=== PATIENT | female | born 1975 | race Caucasian/White ===

== ENCOUNTER 2021-01-27 16:13 | Inpatient (IN) | payer MEDICAID ==
[~2021-01-27] VITALS: Ht 175.3 cm; Wt 71.7 kg
[2021-01-27] MEDS ORDERED: ONDANSETRON HCL 4MG/2ML INJ IV STA (16:48)
[2021-01-27] MEDS ORDERED: CEFTRIAXONE 2 G PREMIX 50 ML IV ONE (17:00)
[2021-01-27] MEDS ORDERED: PANTOPRAZOLE SODIUM 40 MG/VIAL IV ONE (17:00)
[2021-01-27] MEDS ORDERED: OCTREOTIDE 1,000 MCG in SODIUM CHLORIDE 0.9% 100 ML IV ONE (17:00)
[2021-01-27] MEDS ORDERED: SODIUM CHLORIDE 0.9% 1,000 ML IV ONE (17:00)
[2021-01-27 17:15] LABS: MEAN CORPUSCULAR HEMOGLOBIN 36.8 pg (28.0-32.0); MEAN CORPUSCULAR VOLUME 105.7 fL (80.0-94.0); RED BLOOD CELL COUNT 1.91 mill/uL (4.7-6.1); RED CELL DISTRIBUTION WIDTH 18.4 % (11.6-14.6)
[2021-01-27 17:18] LABS: HEMATOCRIT. 20.2 % (42.0-52.0)
[2021-01-27 17:20] LABS: CHLORIDE 112 mEq/L (98-107)
[2021-01-27 17:24] LABS: INR 2.1; PROTHROMBIN TIME 21.4 sec (9.6-11.0)
[2021-01-27 17:29] LABS: CREATINE KINASE 21 IU/L (39-308)
[2021-01-27 17:39] LABS: MEAN PLATELET VOLUME 9.5 fl (7.4-10.4); PLATELET 68 x1000/uL (130-400)
[2021-01-27 17:41] LABS: PLATELET ESTIMATE DECREASED
[2021-01-27] MEDS ORDERED: OCTREOTIDE 1,000 MCG in SODIUM CHLORIDE 0.9% 100 ML IV NR (18:30)
[2021-01-27] MEDS ORDERED: AZITHROMYCIN 500MG/250ML 250 ML IV SCH (19:45)
[2021-01-27 23:08] LABS: CLARITY URINE CLEAR (CLEAR); COLOR URINE DARK YELLOW (YELLOW); KETONES URINE NEGATIVE (NEGATIVE); LEUKOCYTE ESTERASE URINE 1+ (NEGATIVE); NITRITE URINE POSITIVE (NEGATIVE); OCCULT BLOOD URINE 2+ (NEGATIVE); PROTEIN URINE TRACE (NEGATIVE); SPECIFIC GRAVITY URINE 1.019 (1.005-1.030); UROBILINOGEN URINE 0.2 E.U./dL (0.2-1.0)
[2021-01-27 23:24] LABS: *AMPHETAMINES SCREEN URINE NEGATIVE (NEGATIVE); *BARBITURATES SCREEN URINE NEGATIVE (NEGATIVE); *BENZODIAZEPINES SCREEN URINE NEGATIVE (NEGATIVE); *COCAINE SCREEN URINE NEGATIVE (NEGATIVE)
[2021-01-27 23:25] LABS: CANNABINOID URINE SCREEN NEGATIVE (NEGATIVE); METHADONE URINE SCREEN NEGATIVE (NEGATIVE); OPIATES URINE SCREEN NEGATIVE (NEGATIVE); PHENCYCLIDINE URINE SCREEN NEGATIVE (NEGATIVE)
[2021-01-28] VITALS (9 sets, daily range): BP systolic 86–103; BP diastolic 54–71
[2021-01-28] MEDS: DEXT 5%/0.45% NACL 1000ML 1,000 ML IV SCH ×2 (11:57→22:50)
[2021-01-28] MEDS: MULTIVITAMINS,THER W-MINERALS TABLET PO SCH (14:07)
[2021-01-28] MEDS: FOLIC ACID 1MG TABLET PO SCH (14:07)
[2021-01-28] MEDS: THIAMINE HCL 100MG TABLET PO SCH (14:07)
[2021-01-28] MEDS ORDERED: CEFTRIAXONE 1 G PREMIX 50 ML IV SCH (18:00)
[2021-01-28] MEDS: CEFTRIAXONE 1,000 MG in DEXTROSE 5% WATER 50 ML IV SCH (18:03)
[2021-01-28 18:04] LABS: PHOSPHORUS 3.2 mg/dL (2.5-4.9)
[2021-01-28 18:21] LABS: FERRITIN 977 ng/mL (10-291)
[2021-01-28 18:32] LABS: HEPATITIS B SURFACE ANTIGEN NEGATIVE
[2021-01-28 19:21] LABS: VITAMIN B12 SERUM > 2000.0 pg/mL (211-911)
[2021-01-29] VITALS (15 sets, daily range): BP systolic 97–112; BP diastolic 63–79
[2021-01-29] MEDS: AZITHROMYCIN 500 MG in DEXT 5% WATER 250 ML IV SCH ×2 (06:38→20:00)
[2021-01-29] MEDS: ONDANSETRON HCL 4MG/2ML INJ IV PRN (06:54)
[2021-01-29] MEDS: THIAMINE HCL 100MG TABLET PO SCH (09:00)
[2021-01-29] MEDS: FOLIC ACID 1MG TABLET PO SCH (09:00)
[2021-01-29] MEDS: MULTIVITAMINS,THER W-MINERALS TABLET PO SCH (09:00)
[2021-01-29 11:07] LABS: HEMATOCRIT. 22.8 % (36.0-48.0); HEMOGLOBIN. 7.9 g/dL (12.0-16.0); MEAN CORPUSCULAR HEMOGLOBIN 35.7 pg (28.0-32.0); MEAN CORPUSCULAR VOLUME 103.5 fL (81.0-99.0); RED BLOOD CELL COUNT 2.21 mill/uL (4.2-5.4); RED CELL DISTRIBUTION WIDTH 19.9 % (11.6-14.6)
[2021-01-29 11:13] LABS: INR 1.9; PROTHROMBIN TIME 19.8 sec (9.6-11.0)
[2021-01-29] MEDS: DEXT 5%/0.45% NACL 1000ML 1,000 ML IV SCH (12:47)
[2021-01-29] MEDS ORDERED: LIDOCAINE HCL 1% 30ML VIAL (10MG/ML) ONE (13:09)
[2021-01-29] MEDS ORDERED: SODIUM BICARBONATE 4% (2.4MEQ) 5ML VIAL IV ONE (13:10)
[2021-01-29 13:22] LABS: PLATELET 58 x1000/uL (130-400)
[2021-01-29 13:25] LABS: PLATELET ESTIMATE DECREASED
[2021-01-29] MEDS ORDERED: PHYTONADIONE 10MG/ML AMP SUBCUT NR (14:00)
[2021-01-29] MEDS: CEFTRIAXONE 1,000 MG in DEXTROSE 5% WATER 50 ML IV SCH (17:07)
[2021-01-30] VITALS: BP 107/73
[2021-01-30] MEDS: DEXT 5%/0.45% NACL 1000ML 1,000 ML IV SCH ×2 (01:45→15:14)
[2021-01-30 04:00] VITALS: BP 94/53
[2021-01-30 07:02] LABS: BASOPHILS % 0.1 % (0.0-2.0); EOSINOPHILS % 0.5 % (0.0-5.0); HEMATOCRIT. 21.4 % (36.0-48.0); HEMOGLOBIN. 7.4 g/dL (12.0-16.0); LYMPHOCYTES % 8.5 % (20.0-50.0); MEAN CORPUSCULAR HEMOGLOBIN 35.4 pg (28.0-32.0); MEAN CORPUSCULAR VOLUME 102.3 fL (81.0-99.0); MONOCYTES % 8.8 % (2.0-8.0); NEUTROPHILS % 82.1 % (40.0-76.0); RED BLOOD CELL COUNT 2.09 mill/uL (4.2-5.4); RED CELL DISTRIBUTION WIDTH 19.8 % (11.6-14.6)
[2021-01-30 07:27] LABS: CHLORIDE 113 mEq/L (98-107)
[2021-01-30 08:00] VITALS: BP 93/52
[2021-01-30] MEDS: PHYTONADIONE 10MG/ML AMP SUBCUT SCH (08:48)
[2021-01-30] MEDS: FOLIC ACID 1MG TABLET PO SCH (08:48)
[2021-01-30] MEDS: THIAMINE HCL 100MG TABLET PO SCH (08:48)
[2021-01-30] MEDS: MULTIVITAMINS,THER W-MINERALS TABLET PO SCH (08:48)
[2021-01-30] MEDS: MAGNESIUM OXIDE 400MG TABLET PO SCH (11:37)
[2021-01-30 12:00] VITALS: BP 90/58
[2021-01-30 12:25] LABS: MEAN PLATELET VOLUME 9.5 fl (7.4-10.4); PLATELET 52 x1000/uL (130-400)
[2021-01-30 16:00] VITALS: BP 111/59
[2021-01-30] MEDS: CEFTRIAXONE 1,000 MG in DEXTROSE 5% WATER 50 ML IV SCH (17:11)
[2021-01-30] MEDS: AZITHROMYCIN 500 MG in DEXT 5% WATER 250 ML IV SCH (19:34)
[2021-01-30 20:00] VITALS: BP 103/62
[2021-01-31 00:50] VITALS: BP 101/71
[2021-01-31] MEDS: DEXT 5%/0.45% NACL 1000ML 1,000 ML IV SCH ×2 (03:38→17:10)
[2021-01-31 04:00] VITALS: BP 97/65
[2021-01-31 07:21] LABS: HEMOGLOBIN. 7.7 g/dL (12.0-16.0); MEAN CORPUSCULAR HEMOGLOBIN 36.3 pg (28.0-32.0); MEAN CORPUSCULAR VOLUME 103.6 fL (81.0-99.0); PLATELET 54 x1000/uL (130-400); RED BLOOD CELL COUNT 2.13 mill/uL (4.2-5.4)
[2021-01-31 07:46] LABS: CHLORIDE 111 mEq/L (98-107)
[2021-01-31 08:00] VITALS: BP 94/53
[2021-01-31] MEDS: MAGNESIUM OXIDE 400MG TABLET PO SCH (08:42)
[2021-01-31] MEDS: PHYTONADIONE 10MG/ML AMP SUBCUT SCH (08:42)
[2021-01-31] MEDS: FOLIC ACID 1MG TABLET PO SCH (08:42)
[2021-01-31] MEDS: MULTIVITAMINS,THER W-MINERALS TABLET PO SCH (08:42)
[2021-01-31] MEDS: THIAMINE HCL 100MG TABLET PO SCH (08:42)
[2021-01-31 11:53] LABS: PLATELET ESTIMATE DECREASED
[2021-01-31 12:00] VITALS: BP 109/71
[2021-01-31 16:00] VITALS: BP 88/52
[2021-01-31] MEDS: CEFTRIAXONE 1,000 MG in DEXTROSE 5% WATER 50 ML IV SCH (17:08)
[2021-01-31 20:00] VITALS: BP 95/62
[2021-01-31] MEDS: AZITHROMYCIN 500 MG in DEXT 5% WATER 250 ML IV SCH (20:11)
[2021-02-01] VITALS (12 sets, daily range): BP systolic 91–108; BP diastolic 50–76
[2021-02-01 06:20] LABS: BASOPHILS % 0.2 % (0.0-2.0); EOSINOPHILS % 0.4 % (0.0-5.0); LYMPHOCYTES % 10.1 % (20.0-50.0); MEAN CORPUSCULAR VOLUME 104.7 fL (81.0-99.0); MEAN PLATELET VOLUME 9.8 fl (7.4-10.4); MONOCYTES % 10.2 % (2.0-8.0); NEUTROPHILS % 79.1 % (40.0-76.0); RED BLOOD CELL COUNT 1.95 mill/uL (4.2-5.4); RED CELL DISTRIBUTION WIDTH 20.5 % (11.6-14.6)
[2021-02-01 07:06] LABS: CHLORIDE 109 mEq/L (98-107)
[2021-02-01 07:30] LABS: HEMATOCRIT. 20.4 % (36.0-48.0); PLATELET 49 x1000/uL (130-400)
[2021-02-01] MEDS: MULTIVITAMINS,THER W-MINERALS TABLET PO SCH (09:06)
[2021-02-01] MEDS: THIAMINE HCL 100MG TABLET PO SCH (09:06)
[2021-02-01] MEDS: FOLIC ACID 1MG TABLET PO SCH (09:06)
[2021-02-01] MEDS: DEXT 5%/0.45% NACL 1000ML 1,000 ML IV SCH ×2 (09:06→20:26)
[2021-02-01] MEDS: MAGNESIUM OXIDE 400MG TABLET PO SCH (09:07)
[2021-02-01] MEDS: PANTOPRAZOLE SODIUM 40 MG/VIAL IV SCH ×2 (09:12→16:27)
[2021-02-01 16:46] LABS: PLATELET ESTIMATE MARKEDLY DECREASED
[2021-02-01] MEDS: CEFTRIAXONE 1,000 MG in DEXTROSE 5% WATER 50 ML IV SCH (18:14)
[2021-02-01 18:24] LABS: HEMATOCRIT 23.7 % (36.0-48.0); HEMOGLOBIN 8.4 g/dL (12.0-16.0)
[2021-02-01 18:34] LABS: INR 1.8; PROTHROMBIN TIME 18.7 sec (9.6-11.0)
[2021-02-01] MEDS: AZITHROMYCIN 500 MG in DEXT 5% WATER 250 ML IV SCH (20:25)
[2021-02-01] MEDS ORDERED: MAGNESIUM 2 G PREMIX 50 ML IV NR (23:00)
[2021-02-02] VITALS (17 sets, daily range): BP systolic 91–108; BP diastolic 53–73
[2021-02-02 06:08] LABS: INR 1.9; PROTHROMBIN TIME 19.5 sec (9.6-11.0)
[2021-02-02 06:24] LABS: CHLORIDE 109 mEq/L (98-107)
[2021-02-02 07:05] LABS: BASOPHILS % 0.3 % (0.0-2.0); EOSINOPHILS % 0.8 % (0.0-5.0); HEMOGLOBIN. 7.2 g/dL (12.0-16.0); LYMPHOCYTES % 14.1 % (20.0-50.0); MEAN CORPUSCULAR HEMOGLOBIN 35.7 pg (28.0-32.0); MEAN CORPUSCULAR VOLUME 101.3 fL (81.0-99.0); MEAN PLATELET VOLUME 9.9 fl (7.4-10.4); MONOCYTES % 8.7 % (2.0-8.0); NEUTROPHILS % 76.1 % (40.0-76.0); RED BLOOD CELL COUNT 2.02 mill/uL (4.2-5.4); RED CELL DISTRIBUTION WIDTH 20.6 % (11.6-14.6)
[2021-02-02] MEDS: MAGNESIUM OXIDE 400MG TABLET PO SCH (08:35)
[2021-02-02] MEDS: THIAMINE HCL 100MG TABLET PO SCH (08:35)
[2021-02-02] MEDS: FOLIC ACID 1MG TABLET PO SCH (08:36)
[2021-02-02] MEDS: PANTOPRAZOLE SODIUM 40 MG/VIAL IV SCH ×2 (08:36→19:06)
[2021-02-02] MEDS: MULTIVITAMINS,THER W-MINERALS TABLET PO SCH (08:36)
[2021-02-02 09:04] LABS: HEMATOCRIT. 20.4 % (36.0-48.0)
[2021-02-02] MEDS ORDERED: SIMETHICONE 40 MG/0.6 ML 30ML ONE (14:51)
[2021-02-02] MEDS ORDERED: PROPOFOL 200MG/20ML VIAL IV ONE (16:17)
[2021-02-02] MEDS ORDERED: MIDAZOLAM HCL 2 MG/2 ML VIAL ONE (16:17)
[2021-02-02] MEDS: CEFTRIAXONE 1,000 MG in DEXTROSE 5% WATER 50 ML IV SCH (19:06)
[2021-02-02] MEDS: OCTREOTIDE 1,000 MCG in SODIUM CHLORIDE 0.9% 100 ML IV SCH (19:45)
[2021-02-02] MEDS: DEXT 5%/0.45% NACL 1000ML 1,000 ML IV SCH (19:54)
[2021-02-02] MEDS ORDERED: AZITHROMYCIN 500 MG TABLET PO SCH (20:00)
[2021-02-02 21:11] LABS: HEMATOCRIT 23.5 % (36.0-48.0); HEMOGLOBIN 8.4 g/dL (12.0-16.0); MEAN CORPUSCULAR HEMOGLOBIN 35.2 pg (28.0-32.0); MEAN CORPUSCULAR VOLUME 98.9 fL (81.0-99.0); RED BLOOD CELL COUNT 2.38 mill/uL (4.2-5.4); RED CELL DISTRIBUTION WIDTH 21.9 % (11.6-14.6)
[2021-02-02 21:19] LABS: PLATELET 42 x1000/uL (130-400)
[2021-02-03] VITALS: BP 93/61
[2021-02-03 04:00] VITALS: BP 95/64
[2021-02-03 06:20] LABS: BASOPHILS % 0.2 % (0.0-2.0); EOSINOPHILS % 0.3 % (0.0-5.0); HEMATOCRIT. 23.1 % (36.0-48.0); HEMOGLOBIN. 8.2 g/dL (12.0-16.0); LYMPHOCYTES % 9.2 % (20.0-50.0); MEAN CORPUSCULAR HEMOGLOBIN 35.3 pg (28.0-32.0); MEAN CORPUSCULAR VOLUME 99.4 fL (81.0-99.0); MEAN PLATELET VOLUME 9.9 fl (7.4-10.4); MONOCYTES % 9.4 % (2.0-8.0); NEUTROPHILS % 80.9 % (40.0-76.0); RED BLOOD CELL COUNT 2.33 mill/uL (4.2-5.4); RED CELL DISTRIBUTION WIDTH 22.4 % (11.6-14.6)
[2021-02-03 06:30] LABS: PHOSPHORUS 2.7 mg/dL (2.5-4.9)
[2021-02-03 06:51] LABS: PLATELET 41 x1000/uL (130-400)
[2021-02-03 08:00] VITALS: BP 118/80
[2021-02-03 08:42] LABS: PLATELET 47 x1000/uL (130-400)
[2021-02-03] MEDS: MAGNESIUM OXIDE 400MG TABLET PO SCH (08:42)
[2021-02-03] MEDS: MULTIVITAMINS,THER W-MINERALS TABLET PO SCH (08:42)
[2021-02-03] MEDS: THIAMINE HCL 100MG TABLET PO SCH (08:42)
[2021-02-03] MEDS: PANTOPRAZOLE SODIUM 40 MG/VIAL IV SCH ×2 (08:42→16:49)
[2021-02-03] MEDS: FOLIC ACID 1MG TABLET PO SCH (08:42)
[2021-02-03] MEDS: DEXT 5%/0.45% NACL 1000ML 1,000 ML IV SCH ×2 (08:43→08:44)
[2021-02-03] MEDS ORDERED: CITALOPRAM HYDROBROMIDE 10MG TABLET PO NR (10:10)
[2021-02-03 12:00] VITALS: BP 104/79
[2021-02-03] MEDS: GABAPENTIN 100MG CAPSULE PO SCH ×2 (14:39→21:20)
[2021-02-03 16:00] VITALS: BP 130/76
[2021-02-03] MEDS: OCTREOTIDE 1,000 MCG in SODIUM CHLORIDE 0.9% 100 ML IV SCH (16:49)
[2021-02-03 20:00] VITALS: BP 101/66
[2021-02-04] VITALS: BP 106/66
[2021-02-04] MEDS ORDERED: MORPHINE SULFATE 2 MG/ML CPJ (NOT FOR IM USE) IV PRN
[2021-02-04] MEDS ORDERED: HYDROMORPHONE HCL/PF 2MG/ML CPJ IV PRN ×2 (00:15→03:30)
[2021-02-04] MEDS ORDERED: DIPHENHYDRAMINE 50MG CAPSULE PO PRN (00:30)
[2021-02-04] MEDS: TRAMADOL 50MG TABLET PO PRN ×2 (00:36→08:43)
[2021-02-04] MEDS: DEXT 5%/0.45% NACL 1000ML 1,000 ML IV SCH ×2 (01:10→14:58)
[2021-02-04 04:00] VITALS: BP 107/71
[2021-02-04] MEDS: OCTREOTIDE 1,000 MCG in SODIUM CHLORIDE 0.9% 100 ML IV SCH (05:09)
[2021-02-04 06:14] LABS: BASOPHILS % 0.5 % (0.0-2.0); EOSINOPHILS % 0.9 % (0.0-5.0); HEMATOCRIT. 24.5 % (36.0-48.0); HEMOGLOBIN. 8.6 g/dL (12.0-16.0); MEAN CORPUSCULAR HEMOGLOBIN 34.8 pg (28.0-32.0); MEAN CORPUSCULAR VOLUME 98.9 fL (81.0-99.0); MONOCYTES % 9.6 % (2.0-8.0); RED BLOOD CELL COUNT 2.48 mill/uL (4.2-5.4); RED CELL DISTRIBUTION WIDTH 22.4 % (11.6-14.6)
[2021-02-04 06:22] LABS: CHLORIDE 108 mEq/L (98-107)
[2021-02-04] MEDS: GABAPENTIN 100MG CAPSULE PO SCH ×3 (06:38→21:12)
[2021-02-04 08:00] VITALS: BP 113/77
[2021-02-04] MEDS: THIAMINE HCL 100MG TABLET PO SCH (08:32)
[2021-02-04] MEDS: PANTOPRAZOLE SODIUM 40 MG/VIAL IV SCH ×2 (08:32→16:58)
[2021-02-04] MEDS: MULTIVITAMINS,THER W-MINERALS TABLET PO SCH (08:32)
[2021-02-04] MEDS: FOLIC ACID 1MG TABLET PO SCH (08:32)
[2021-02-04] MEDS: MAGNESIUM OXIDE 400MG TABLET PO SCH (08:33)
[2021-02-04] MEDS: ONDANSETRON HCL 4MG/2ML INJ IV PRN (08:43)
[2021-02-04 12:00] VITALS: BP 124/87
[2021-02-04 13:51] LABS: MEAN PLATELET VOLUME 9.7 fl (7.4-10.4); PLATELET 49 x1000/uL (130-400)
[2021-02-04 16:00] VITALS: BP 120/82
[2021-02-04 20:00] VITALS: BP 116/68
[2021-02-05] VITALS (9 sets, daily range): BP systolic 100–132; BP diastolic 60–78
[2021-02-05] MEDS: OCTREOTIDE 1,000 MCG in SODIUM CHLORIDE 0.9% 100 ML IV SCH ×2 (01:30→20:36)
[2021-02-05] MEDS: DEXT 5%/0.45% NACL 1000ML 1,000 ML IV SCH ×2 (01:31→17:30)
[2021-02-05] MEDS: GABAPENTIN 100MG CAPSULE PO SCH ×3 (05:02→20:50)
[2021-02-05] MEDS: PANTOPRAZOLE SODIUM 40 MG/VIAL IV SCH ×2 (10:11→17:30)
[2021-02-05] MEDS: MULTIVITAMINS,THER W-MINERALS TABLET PO SCH (10:11)
[2021-02-05] MEDS: THIAMINE HCL 100MG TABLET PO SCH (10:11)
[2021-02-05] MEDS: FOLIC ACID 1MG TABLET PO SCH (10:11)
[2021-02-05] MEDS ORDERED: TEMAZEPAM 15MG CAPSULE PO PRN (10:45)
[2021-02-05 11:06] LABS: INR 1.9; PROTHROMBIN TIME 19.5 sec (9.6-11.0)
[2021-02-05] MEDS: CITALOPRAM HYDROBROMIDE 10MG TABLET PO SCH (11:08)
[2021-02-05] MEDS: MAGNESIUM OXIDE 400MG TABLET PO SCH (11:08)
[2021-02-05 11:10] LABS: BASOPHILS % 0.5 % (0.0-2.0); HEMATOCRIT. 25.1 % (36.0-48.0); HEMOGLOBIN. 8.5 g/dL (12.0-16.0); LYMPHOCYTES % 7.6 % (20.0-50.0); MEAN CORPUSCULAR HEMOGLOBIN 34.2 pg (28.0-32.0); MEAN CORPUSCULAR VOLUME 101.1 fL (81.0-99.0); MEAN PLATELET VOLUME 9.4 fl (7.4-10.4); MONOCYTES % 9.7 % (2.0-8.0); NEUTROPHILS % 81.2 % (40.0-76.0); RED BLOOD CELL COUNT 2.48 mill/uL (4.2-5.4); RED CELL DISTRIBUTION WIDTH 23.1 % (11.6-14.6)
[2021-02-05 11:19] LABS: PLATELET 47 x1000/uL (130-400)
[2021-02-06] VITALS (12 sets, daily range): BP systolic 94–132; BP diastolic 60–78
[2021-02-06] MEDS: GABAPENTIN 100MG CAPSULE PO SCH ×3 (05:11→21:15)
[2021-02-06] MEDS: DEXT 5%/0.45% NACL 1000ML 1,000 ML IV SCH ×2 (05:11→21:15)
[2021-02-06 07:10] LABS: INR 1.9; PROTHROMBIN TIME 19.2 sec (9.6-11.0)
[2021-02-06 07:29] LABS: CHLORIDE 107 mEq/L (98-107)
[2021-02-06 07:36] LABS: BASOPHILS % 0.5 % (0.0-2.0); HEMATOCRIT. 23.2 % (36.0-48.0); HEMOGLOBIN. 8.1 g/dL (12.0-16.0); LYMPHOCYTES % 11.6 % (20.0-50.0); MEAN CORPUSCULAR HEMOGLOBIN 35.2 pg (28.0-32.0); MEAN CORPUSCULAR VOLUME 100.3 fL (81.0-99.0); NEUTROPHILS % 75.9 % (40.0-76.0); RED BLOOD CELL COUNT 2.31 mill/uL (4.2-5.4)
[2021-02-06 08:13] LABS: MEAN PLATELET VOLUME 9.6 fl (7.4-10.4); PLATELET 46 x1000/uL (130-400)
[2021-02-06] MEDS: MAGNESIUM OXIDE 400MG TABLET PO SCH (09:11)
[2021-02-06] MEDS: MULTIVITAMINS,THER W-MINERALS TABLET PO SCH (09:11)
[2021-02-06] MEDS: FOLIC ACID 1MG TABLET PO SCH (09:11)
[2021-02-06] MEDS: THIAMINE HCL 100MG TABLET PO SCH (09:11)
[2021-02-06] MEDS: PANTOPRAZOLE SODIUM 40 MG/VIAL IV SCH ×2 (09:12→17:16)
[2021-02-06] MEDS: CITALOPRAM HYDROBROMIDE 10MG TABLET PO SCH (09:12)
[2021-02-06 12:33] LABS: INR 1.8; PROTHROMBIN TIME 18.2 sec (9.6-11.0)
[2021-02-06 12:52] LABS: HEMATOCRIT 24.3 % (36.0-48.0); HEMOGLOBIN 8.6 g/dL (12.0-16.0)
[2021-02-06] MEDS: TRAMADOL 50MG TABLET PO PRN (13:42)
[2021-02-06] MEDS: OCTREOTIDE 1,000 MCG in SODIUM CHLORIDE 0.9% 100 ML IV SCH (17:27)
[2021-02-07] VITALS: BP 112/77
[2021-02-07 04:00] VITALS: BP 100/58
[2021-02-07] MEDS: GABAPENTIN 100MG CAPSULE PO SCH ×3 (05:09→22:20)
[2021-02-07 07:39] LABS: BASOPHILS % 0.6 % (0.0-2.0); EOSINOPHILS % 0.9 % (0.0-5.0); HEMATOCRIT. 22.1 % (36.0-48.0); HEMOGLOBIN. 7.7 g/dL (12.0-16.0); LYMPHOCYTES % 11.4 % (20.0-50.0); MEAN CORPUSCULAR HEMOGLOBIN 34.7 pg (28.0-32.0); MEAN CORPUSCULAR VOLUME 100.3 fL (81.0-99.0); MONOCYTES % 10.6 % (2.0-8.0); NEUTROPHILS % 76.5 % (40.0-76.0); RED CELL DISTRIBUTION WIDTH 22.9 % (11.6-14.6)
[2021-02-07 07:51] LABS: CHLORIDE 107 mEq/L (98-107)
[2021-02-07 07:56] LABS: PROTHROMBIN TIME 19.9 sec (9.6-11.0)
[2021-02-07 08:00] VITALS: BP 121/78
[2021-02-07] MEDS: DEXT 5%/0.45% NACL 1000ML 1,000 ML IV SCH ×2 (09:41→20:52)
[2021-02-07] MEDS: CITALOPRAM HYDROBROMIDE 10MG TABLET PO SCH (09:41)
[2021-02-07] MEDS: THIAMINE HCL 100MG TABLET PO SCH (09:41)
[2021-02-07] MEDS: MAGNESIUM OXIDE 400MG TABLET PO SCH (09:41)
[2021-02-07] MEDS: PANTOPRAZOLE SODIUM 40 MG/VIAL IV SCH ×2 (09:41→17:25)
[2021-02-07] MEDS: FOLIC ACID 1MG TABLET PO SCH (09:42)
[2021-02-07] MEDS: MULTIVITAMINS,THER W-MINERALS TABLET PO SCH (09:42)
[2021-02-07 11:02] LABS: PLATELET ESTIMATE MARKEDLY DECREASED
[2021-02-07 11:05] LABS: MEAN PLATELET VOLUME 9.5 fl (7.4-10.4); PLATELET 50 x1000/uL (130-400)
[2021-02-07 12:00] VITALS: BP 107/71
[2021-02-07] MEDS: ONDANSETRON HCL 4MG/2ML INJ IV PRN (13:54)
[2021-02-07] MEDS: OCTREOTIDE 1,000 MCG in SODIUM CHLORIDE 0.9% 100 ML IV SCH (13:54)
[2021-02-07 16:00] VITALS: BP 108/75
[2021-02-07 20:00] VITALS: BP 122/74
[2021-02-08] VITALS: BP 99/66
[2021-02-08 04:00] VITALS: BP 112/67
[2021-02-08 06:27] LABS: BASOPHILS % 0.5 % (0.0-2.0); EOSINOPHILS % 1.2 % (0.0-5.0); HEMATOCRIT. 21.7 % (36.0-48.0); HEMOGLOBIN. 7.5 g/dL (12.0-16.0); MEAN CORPUSCULAR HEMOGLOBIN 34.8 pg (28.0-32.0); MEAN CORPUSCULAR VOLUME 101.1 fL (81.0-99.0); NEUTROPHILS % 77.3 % (40.0-76.0); RED BLOOD CELL COUNT 2.15 mill/uL (4.2-5.4); RED CELL DISTRIBUTION WIDTH 22.9 % (11.6-14.6)
[2021-02-08 06:33] LABS: PROTHROMBIN TIME 20.7 sec (9.6-11.0)
[2021-02-08] MEDS: GABAPENTIN 100MG CAPSULE PO SCH ×3 (06:53→21:19)
[2021-02-08 07:17] LABS: CHLORIDE 107 mEq/L (98-107)
[2021-02-08 07:28] LABS: MEAN PLATELET VOLUME 9.7 fl (7.4-10.4); PLATELET 45 x1000/uL (130-400)
[2021-02-08 08:00] VITALS: BP 97/63
[2021-02-08] MEDS: PANTOPRAZOLE SODIUM 40 MG/VIAL IV SCH ×2 (09:28→16:52)
[2021-02-08] MEDS: CITALOPRAM HYDROBROMIDE 10MG TABLET PO SCH (09:28)
[2021-02-08] MEDS: THIAMINE HCL 100MG TABLET PO SCH (09:29)
[2021-02-08] MEDS: FOLIC ACID 1MG TABLET PO SCH (09:29)
[2021-02-08] MEDS: MULTIVITAMINS,THER W-MINERALS TABLET PO SCH (09:29)
[2021-02-08] MEDS: MAGNESIUM OXIDE 400MG TABLET PO SCH (09:29)
[2021-02-08] MEDS: OCTREOTIDE 1,000 MCG in SODIUM CHLORIDE 0.9% 100 ML IV SCH (10:46)
[2021-02-08] MEDS: DEXT 5%/0.45% NACL 1000ML 1,000 ML IV SCH (10:47)
[2021-02-08 12:00] VITALS: BP 102/70
[2021-02-08 16:00] VITALS: BP 120/79
[2021-02-08 20:00] VITALS: BP 123/81
[2021-02-09] VITALS (9 sets, daily range): BP systolic 92–125; BP diastolic 58–83
[2021-02-09] MEDS: DEXT 5%/0.45% NACL 1000ML 1,000 ML IV SCH (04:28)
[2021-02-09] MEDS: GABAPENTIN 100MG CAPSULE PO SCH ×3 (06:25→21:51)
[2021-02-09] MEDS: THIAMINE HCL 100MG TABLET PO SCH (08:01)
[2021-02-09] MEDS: CITALOPRAM HYDROBROMIDE 10MG TABLET PO SCH (08:01)
[2021-02-09] MEDS: FOLIC ACID 1MG TABLET PO SCH (08:01)
[2021-02-09] MEDS: PANTOPRAZOLE SODIUM 40 MG/VIAL IV SCH ×2 (08:01→17:14)
[2021-02-09] MEDS: MAGNESIUM OXIDE 400MG TABLET PO SCH (08:01)
[2021-02-09] MEDS: MULTIVITAMINS,THER W-MINERALS TABLET PO SCH (08:01)
[2021-02-09] MEDS: OCTREOTIDE 1,000 MCG in SODIUM CHLORIDE 0.9% 100 ML IV SCH (08:02)
[2021-02-09 09:39] LABS: INR 2.1; PROTHROMBIN TIME 21.4 sec (9.6-11.0)
[2021-02-09 09:46] LABS: HEMATOCRIT. 24.8 % (36.0-48.0); HEMOGLOBIN. 8.7 g/dL (12.0-16.0); MEAN CORPUSCULAR VOLUME 103.2 fL (81.0-99.0); RED CELL DISTRIBUTION WIDTH 22.5 % (11.6-14.6)
[2021-02-09 10:02] LABS: CHLORIDE 107 mEq/L (98-107)
[2021-02-09 11:38] LABS: PLATELET 52 x1000/uL (130-400)
[2021-02-09 11:42] LABS: PLATELET ESTIMATE MARKEDLY DECREASED
[2021-02-10] VITALS: BP 117/74
[2021-02-10 00:05] VITALS: BP 117/74
[2021-02-10 04:00] VITALS: BP 120/67
[2021-02-10] MEDS: GABAPENTIN 100MG CAPSULE PO SCH ×3 (06:15→22:21)
[2021-02-10] MEDS: MULTIVITAMINS,THER W-MINERALS TABLET PO SCH (08:38)
[2021-02-10] MEDS: MAGNESIUM OXIDE 400MG TABLET PO SCH (08:38)
[2021-02-10] MEDS: FOLIC ACID 1MG TABLET PO SCH (08:39)
[2021-02-10] MEDS: PANTOPRAZOLE SODIUM 40 MG/VIAL IV SCH ×2 (08:39→18:17)
[2021-02-10] MEDS: CITALOPRAM HYDROBROMIDE 10MG TABLET PO SCH (08:39)
[2021-02-10] MEDS: THIAMINE HCL 100MG TABLET PO SCH (08:40)
[2021-02-10 09:59] LABS: BASOPHILS % 0.8 % (0.0-2.0); EOSINOPHILS % 0.7 % (0.0-5.0); HEMATOCRIT. 21.6 % (36.0-48.0); HEMOGLOBIN. 7.4 g/dL (12.0-16.0); LYMPHOCYTES % 9.6 % (20.0-50.0); MEAN CORPUSCULAR VOLUME 102.6 fL (81.0-99.0); MEAN PLATELET VOLUME 9.4 fl (7.4-10.4); MONOCYTES % 9.8 % (2.0-8.0); NEUTROPHILS % 79.1 % (40.0-76.0); RED CELL DISTRIBUTION WIDTH 23.3 % (11.6-14.6)
[2021-02-10 10:02] LABS: PROTHROMBIN TIME 20.4 sec (9.6-11.0)
[2021-02-10 10:04] LABS: PLATELET 46 x1000/uL (130-400)
[2021-02-10 10:09] LABS: CHLORIDE 107 mEq/L (98-107)
[2021-02-10] MEDS ORDERED: LIDOCAINE HCL 1% 30ML VIAL (10MG/ML) ONE (10:45)
[2021-02-10] MEDS ORDERED: SODIUM BICARBONATE 4% (2.4MEQ) 5ML VIAL IV ONE (10:46)
[2021-02-10 16:00] VITALS: BP 93/60
[2021-02-10 20:00] VITALS: BP 104/64
[2021-02-10] MEDS: OCTREOTIDE 1,000 MCG in SODIUM CHLORIDE 0.9% 100 ML IV SCH (22:22)
[2021-02-11] VITALS: BP 114/77
[2021-02-11 04:00] VITALS: BP 106/70
[2021-02-11] MEDS: GABAPENTIN 100MG CAPSULE PO SCH ×3 (06:05→21:44)
[2021-02-11 07:13] LABS: CHLORIDE 107 mEq/L (98-107)
[2021-02-11 07:16] LABS: BASOPHILS % 0.7 % (0.0-2.0); EOSINOPHILS % 0.7 % (0.0-5.0); HEMATOCRIT. 22.4 % (36.0-48.0); HEMOGLOBIN. 7.9 g/dL (12.0-16.0); LYMPHOCYTES % 12.7 % (20.0-50.0); MEAN CORPUSCULAR HEMOGLOBIN 35.4 pg (28.0-32.0); MEAN CORPUSCULAR VOLUME 101.3 fL (81.0-99.0); MEAN PLATELET VOLUME 10.6 fl (7.4-10.4); NEUTROPHILS % 77.9 % (40.0-76.0); RED BLOOD CELL COUNT 2.22 mill/uL (4.2-5.4); RED CELL DISTRIBUTION WIDTH 23.3 % (11.6-14.6)
[2021-02-11 08:00] VITALS: BP 102/68
[2021-02-11] MEDS: PANTOPRAZOLE SODIUM 40 MG/VIAL IV SCH ×2 (08:43→17:45)
[2021-02-11] MEDS: MULTIVITAMINS,THER W-MINERALS TABLET PO SCH (08:43)
[2021-02-11] MEDS: MAGNESIUM OXIDE 400MG TABLET PO SCH (08:43)
[2021-02-11] MEDS: THIAMINE HCL 100MG TABLET PO SCH (08:44)
[2021-02-11] MEDS: FOLIC ACID 1MG TABLET PO SCH (08:44)
[2021-02-11 08:47] LABS: PLATELET 50 x1000/uL (130-400)
[2021-02-11] MEDS: CITALOPRAM HYDROBROMIDE 10MG TABLET PO SCH (08:48)
[2021-02-11 12:00] VITALS: BP 105/67
[2021-02-11 16:00] VITALS: BP 105/72
[2021-02-11 20:00] VITALS: BP 113/72
[2021-02-11] MEDS ORDERED: MAGNESIUM 4 G PREMIX 100 ML IV NR (20:00)
[2021-02-12] VITALS (10 sets, daily range): BP systolic 93–110; BP diastolic 58–74
[2021-02-12] MEDS: GABAPENTIN 100MG CAPSULE PO SCH (05:54)
[2021-02-12 08:25] LABS: BASOPHILS % 0.6 % (0.0-2.0); EOSINOPHILS % 0.1 % (0.0-5.0); HEMATOCRIT. 21.1 % (36.0-48.0); HEMOGLOBIN. 7.3 g/dL (12.0-16.0); LYMPHOCYTES % 13.1 % (20.0-50.0); MEAN CORPUSCULAR HEMOGLOBIN 34.9 pg (28.0-32.0); MEAN CORPUSCULAR VOLUME 101.4 fL (81.0-99.0); MEAN PLATELET VOLUME 9.5 fl (7.4-10.4); NEUTROPHILS % 78.2 % (40.0-76.0); RED BLOOD CELL COUNT 2.08 mill/uL (4.2-5.4); RED CELL DISTRIBUTION WIDTH 23.3 % (11.6-14.6)
[2021-02-12 08:33] LABS: PLATELET 43 x1000/uL (130-400)
[2021-02-12 08:41] LABS: CHLORIDE 106 mEq/L (98-107)
[2021-02-12] MEDS: CITALOPRAM HYDROBROMIDE 10MG TABLET PO SCH (09:08)
[2021-02-12] MEDS: MULTIVITAMINS,THER W-MINERALS TABLET PO SCH (09:09)
[2021-02-12] MEDS: THIAMINE HCL 100MG TABLET PO SCH (09:09)
[2021-02-12] MEDS: FOLIC ACID 1MG TABLET PO SCH (09:09)
[2021-02-12] MEDS: MAGNESIUM OXIDE 400MG TABLET PO SCH (09:09)
[2021-02-12] MEDS: PANTOPRAZOLE SODIUM 40 MG/VIAL IV SCH ×2 (09:54→17:49)
[2021-02-12] MEDS: GABAPENTIN 300MG CAPSULE PO SCH ×2 (14:20→21:05)
[2021-02-12 23:10] LABS: HEMATOCRIT 23.5 % (36.0-48.0); HEMOGLOBIN 8.3 g/dL (12.0-16.0)
[2021-02-13] VITALS: BP 125/54
[2021-02-13 04:00] VITALS: BP 95/70
[2021-02-13] MEDS: GABAPENTIN 300MG CAPSULE PO SCH ×3 (06:47→21:07)
[2021-02-13 07:30] LABS: INR 2.2; PROTHROMBIN TIME 22.4 sec (9.6-11.0)
[2021-02-13 07:37] LABS: CHLORIDE 107 mEq/L (98-107)
[2021-02-13 08:00] VITALS: BP 95/63
[2021-02-13 08:10] LABS: BASOPHILS % 0.3 % (0.0-2.0); EOSINOPHILS % 0.3 % (0.0-5.0); HEMATOCRIT. 24.5 % (36.0-48.0); HEMOGLOBIN. 8.6 g/dL (12.0-16.0); LYMPHOCYTES % 11.1 % (20.0-50.0); MEAN CORPUSCULAR HEMOGLOBIN 35.3 pg (28.0-32.0); MEAN CORPUSCULAR VOLUME 100.4 fL (81.0-99.0); NEUTROPHILS % 81.3 % (40.0-76.0); RED BLOOD CELL COUNT 2.44 mill/uL (4.2-5.4)
[2021-02-13] MEDS: PANTOPRAZOLE SODIUM 40 MG/VIAL IV SCH ×2 (08:13→16:35)
[2021-02-13] MEDS: MULTIVITAMINS,THER W-MINERALS TABLET PO SCH (08:13)
[2021-02-13] MEDS: CITALOPRAM HYDROBROMIDE 10MG TABLET PO SCH (08:13)
[2021-02-13] MEDS: THIAMINE HCL 100MG TABLET PO SCH (08:13)
[2021-02-13] MEDS: MAGNESIUM OXIDE 400MG TABLET PO SCH (08:14)
[2021-02-13] MEDS: FOLIC ACID 1MG TABLET PO SCH (08:14)
[2021-02-13 12:00] VITALS: BP 111/71
[2021-02-13 13:55] LABS: MEAN PLATELET VOLUME 9.7 fl (7.4-10.4); PLATELET 53 x1000/uL (130-400); PLATELET ESTIMATE DECREASED
[2021-02-13 16:00] VITALS: BP 105/65
[2021-02-13 20:00] VITALS: BP 108/61
[2021-02-14] VITALS: BP 105/64
[2021-02-14 04:00] VITALS: BP 102/62
[2021-02-14] MEDS: GABAPENTIN 300MG CAPSULE PO SCH ×3 (05:21→21:14)
[2021-02-14 07:56] LABS: BASOPHILS % 0.5 % (0.0-2.0); EOSINOPHILS % 0.5 % (0.0-5.0); HEMATOCRIT. 22.6 % (36.0-48.0); LYMPHOCYTES % 11.4 % (20.0-50.0); MEAN CORPUSCULAR HEMOGLOBIN 35.2 pg (28.0-32.0); MEAN CORPUSCULAR VOLUME 99.2 fL (81.0-99.0); MONOCYTES % 7.8 % (2.0-8.0); NEUTROPHILS % 79.8 % (40.0-76.0); RED BLOOD CELL COUNT 2.28 mill/uL (4.2-5.4); RED CELL DISTRIBUTION WIDTH 23.8 % (11.6-14.6)
[2021-02-14 08:09] LABS: CHLORIDE 106 mEq/L (98-107)
[2021-02-14 08:16] VITALS: BP 99/66
[2021-02-14 09:26] LABS: MEAN PLATELET VOLUME 9.5 fl (7.4-10.4); PLATELET 48 x1000/uL (130-400)
[2021-02-14] MEDS: MULTIVITAMINS,THER W-MINERALS TABLET PO SCH (09:28)
[2021-02-14] MEDS: PANTOPRAZOLE SODIUM 40 MG/VIAL IV SCH ×2 (09:28→18:57)
[2021-02-14] MEDS: MAGNESIUM OXIDE 400MG TABLET PO SCH (09:28)
[2021-02-14] MEDS: CITALOPRAM HYDROBROMIDE 10MG TABLET PO SCH (09:29)
[2021-02-14] MEDS: THIAMINE HCL 100MG TABLET PO SCH (09:29)
[2021-02-14] MEDS: FOLIC ACID 1MG TABLET PO SCH (09:29)
[2021-02-14 12:00] VITALS: BP 107/57
[2021-02-14 16:28] VITALS: BP 99/64
[2021-02-14 20:00] VITALS: BP 100/60
[2021-02-15] VITALS: BP 91/54
[2021-02-15 04:00] VITALS: BP 97/60
[2021-02-15] MEDS: GABAPENTIN 300MG CAPSULE PO SCH ×3 (06:26→21:29)
[2021-02-15 06:36] LABS: CHLORIDE 108 mEq/L (98-107)
[2021-02-15 06:42] LABS: BASOPHILS % 0.5 % (0.0-2.0); EOSINOPHILS % 0.2 % (0.0-5.0); HEMATOCRIT. 22.4 % (36.0-48.0); HEMOGLOBIN. 7.8 g/dL (12.0-16.0); MEAN CORPUSCULAR VOLUME 100.6 fL (81.0-99.0); MONOCYTES % 7.7 % (2.0-8.0); NEUTROPHILS % 75.6 % (40.0-76.0); RED BLOOD CELL COUNT 2.23 mill/uL (4.2-5.4); RED CELL DISTRIBUTION WIDTH 24.2 % (11.6-14.6)
[2021-02-15 08:00] VITALS: BP 94/54
[2021-02-15] MEDS: MAGNESIUM OXIDE 400MG TABLET PO SCH (09:31)
[2021-02-15] MEDS: FOLIC ACID 1MG TABLET PO SCH (09:31)
[2021-02-15] MEDS: MULTIVITAMINS,THER W-MINERALS TABLET PO SCH (09:31)
[2021-02-15] MEDS: PANTOPRAZOLE SODIUM 40 MG/VIAL IV SCH ×2 (09:31→16:59)
[2021-02-15] MEDS: THIAMINE HCL 100MG TABLET PO SCH (09:31)
[2021-02-15] MEDS: CITALOPRAM HYDROBROMIDE 10MG TABLET PO SCH (10:37)
[2021-02-15 12:00] VITALS: BP 100/70
[2021-02-15 16:00] VITALS: BP 97/63
[2021-02-15 20:00] VITALS: BP 96/55
[2021-02-16] VITALS: BP 99/61
[2021-02-16 04:00] VITALS: BP 91/63
[2021-02-16] MEDS: GABAPENTIN 300MG CAPSULE PO SCH ×3 (05:23→21:00)
[2021-02-16 06:40] LABS: BASOPHILS % 0.3 % (0.0-2.0); EOSINOPHILS % 0.2 % (0.0-5.0); HEMATOCRIT. 22.5 % (36.0-48.0); HEMOGLOBIN. 7.7 g/dL (12.0-16.0); LYMPHOCYTES % 13.5 % (20.0-50.0); MEAN CORPUSCULAR HEMOGLOBIN 35.4 pg (28.0-32.0); MONOCYTES % 9.3 % (2.0-8.0); NEUTROPHILS % 76.7 % (40.0-76.0); RED BLOOD CELL COUNT 2.17 mill/uL (4.2-5.4); RED CELL DISTRIBUTION WIDTH 24.1 % (11.6-14.6)
[2021-02-16 06:57] LABS: CHLORIDE 107 mEq/L (98-107)
[2021-02-16 08:00] VITALS: BP 92/61
[2021-02-16] MEDS: PANTOPRAZOLE SODIUM 40 MG/VIAL IV SCH ×2 (08:07→16:23)
[2021-02-16] MEDS: CITALOPRAM HYDROBROMIDE 10MG TABLET PO SCH (08:08)
[2021-02-16] MEDS: THIAMINE HCL 100MG TABLET PO SCH (08:08)
[2021-02-16] MEDS: MAGNESIUM OXIDE 400MG TABLET PO SCH (08:08)
[2021-02-16] MEDS: FOLIC ACID 1MG TABLET PO SCH (08:08)
[2021-02-16] MEDS: MULTIVITAMINS,THER W-MINERALS TABLET PO SCH (08:08)
[2021-02-16 08:23] LABS: PLATELET 47 x1000/uL (130-400)
[2021-02-16 12:00] VITALS: BP 93/62
[2021-02-16 16:00] VITALS: BP 97/56
[2021-02-16 20:00] VITALS: BP 109/56
[2021-02-17] VITALS: BP 109/73
[2021-02-17 04:00] VITALS: BP 113/76
[2021-02-17] MEDS: GABAPENTIN 300MG CAPSULE PO SCH ×3 (05:23→20:36)
[2021-02-17 07:26] LABS: BASOPHILS % 0.6 % (0.0-2.0); EOSINOPHILS % 0.1 % (0.0-5.0); HEMATOCRIT. 22.1 % (36.0-48.0); HEMOGLOBIN. 7.9 g/dL (12.0-16.0); LYMPHOCYTES % 12.7 % (20.0-50.0); MEAN CORPUSCULAR HEMOGLOBIN 36.1 pg (28.0-32.0); MEAN CORPUSCULAR VOLUME 101.5 fL (81.0-99.0); MONOCYTES % 10.5 % (2.0-8.0); NEUTROPHILS % 76.1 % (40.0-76.0); RED BLOOD CELL COUNT 2.17 mill/uL (4.2-5.4)
[2021-02-17 07:42] LABS: CHLORIDE 108 mEq/L (98-107)
[2021-02-17 08:00] VITALS: BP 113/63
[2021-02-17 08:12] LABS: PLATELET 47 x1000/uL (130-400)
[2021-02-17] MEDS: PANTOPRAZOLE SODIUM 40 MG/VIAL IV SCH ×2 (08:54→17:56)
[2021-02-17] MEDS: CITALOPRAM HYDROBROMIDE 10MG TABLET PO SCH (08:55)
[2021-02-17] MEDS: MULTIVITAMINS,THER W-MINERALS TABLET PO SCH (08:55)
[2021-02-17] MEDS: FOLIC ACID 1MG TABLET PO SCH (08:55)
[2021-02-17] MEDS: THIAMINE HCL 100MG TABLET PO SCH (08:55)
[2021-02-17] MEDS: MAGNESIUM OXIDE 400MG TABLET PO SCH (08:55)
[2021-02-17 12:00] VITALS: BP 105/75
[2021-02-17 16:00] VITALS: BP 100/64
[2021-02-17 20:00] VITALS: BP 102/60
[2021-02-17] MEDS ORDERED: MAGNESIUM 2 G PREMIX 50 ML IV SCH (20:00)
[2021-02-18] VITALS: BP 96/60
[2021-02-18 04:00] VITALS: BP 104/62
[2021-02-18 05:20] LABS: CHLORIDE 107 mEq/L (98-107)
[2021-02-18] MEDS: GABAPENTIN 300MG CAPSULE PO SCH ×3 (06:17→22:19)
[2021-02-18 06:19] LABS: BASOPHILS % 0.7 % (0.0-2.0); EOSINOPHILS % 0.2 % (0.0-5.0); HEMATOCRIT. 23.1 % (36.0-48.0); LYMPHOCYTES % 15.8 % (20.0-50.0); MEAN CORPUSCULAR HEMOGLOBIN 35.9 pg (28.0-32.0); MEAN CORPUSCULAR VOLUME 103.4 fL (81.0-99.0); NEUTROPHILS % 73.3 % (40.0-76.0); RED BLOOD CELL COUNT 2.23 mill/uL (4.2-5.4); RED CELL DISTRIBUTION WIDTH 24.1 % (11.6-14.6)
[2021-02-18 08:00] VITALS: BP 92/55
[2021-02-18] MEDS: FOLIC ACID 1MG TABLET PO SCH (09:16)
[2021-02-18] MEDS: MAGNESIUM OXIDE 400MG TABLET PO SCH (09:16)
[2021-02-18] MEDS: MULTIVITAMINS,THER W-MINERALS TABLET PO SCH (09:16)
[2021-02-18] MEDS: THIAMINE HCL 100MG TABLET PO SCH (09:16)
[2021-02-18] MEDS: CITALOPRAM HYDROBROMIDE 10MG TABLET PO SCH (09:16)
[2021-02-18] MEDS: PANTOPRAZOLE SODIUM 40 MG/VIAL IV SCH ×2 (09:17→17:15)
[2021-02-18 12:00] VITALS: BP 92/57
[2021-02-18 13:59] LABS: PLATELET 53 x1000/uL (130-400)
[2021-02-18 16:00] VITALS: BP 96/56
[2021-02-18 20:00] VITALS: BP 93/58
[2021-02-18] MEDS: CYANOCOBALAMIN 1000MCG/ML VIAL IM SCH (22:19)
[2021-02-19] VITALS: BP 91/62
[2021-02-19 04:00] VITALS: BP 101/58
[2021-02-19] MEDS: GABAPENTIN 300MG CAPSULE PO SCH ×3 (05:18→21:06)
[2021-02-19 08:00] VITALS: BP 100/54
[2021-02-19] MEDS: FOLIC ACID 1MG TABLET PO SCH (09:36)
[2021-02-19] MEDS: PANTOPRAZOLE SODIUM 40 MG/VIAL IV SCH ×2 (09:36→17:37)
[2021-02-19] MEDS: THIAMINE HCL 100MG TABLET PO SCH (09:36)
[2021-02-19] MEDS: CITALOPRAM HYDROBROMIDE 10MG TABLET PO SCH (09:36)
[2021-02-19] MEDS: MULTIVITAMINS,THER W-MINERALS TABLET PO SCH (09:36)
[2021-02-19] MEDS: MAGNESIUM OXIDE 400MG TABLET PO SCH (09:36)
[2021-02-19 12:00] VITALS: BP 101/56
[2021-02-19 16:00] VITALS: BP 104/67
[2021-02-19 20:00] VITALS: BP 103/62
[2021-02-19] MEDS: CYANOCOBALAMIN 1000MCG/ML VIAL IM SCH (21:06)
[2021-02-19 21:53] LABS: CHLORIDE 106 mEq/L (98-107)
[2021-02-19 21:54] LABS: BASOPHILS % 0.4 % (0.0-2.0); HEMATOCRIT. 21.9 % (36.0-48.0); HEMOGLOBIN. 7.7 g/dL (12.0-16.0); LYMPHOCYTES % 11.3 % (20.0-50.0); MEAN CORPUSCULAR HEMOGLOBIN 36.4 pg (28.0-32.0); MEAN CORPUSCULAR VOLUME 103.5 fL (81.0-99.0); MONOCYTES % 9.7 % (2.0-8.0); NEUTROPHILS % 78.6 % (40.0-76.0); RED BLOOD CELL COUNT 2.11 mill/uL (4.2-5.4); RED CELL DISTRIBUTION WIDTH 23.6 % (11.6-14.6)
[2021-02-19 22:14] LABS: MEAN PLATELET VOLUME 9.9 fl (7.4-10.4); PLATELET 54 x1000/uL (130-400)
[2021-02-20] VITALS: BP 104/70
[2021-02-20 04:00] VITALS: BP 99/58
[2021-02-20] MEDS: GABAPENTIN 300MG CAPSULE PO SCH ×3 (05:40→20:59)
[2021-02-20 07:00] LABS: CHLORIDE 108 mEq/L (98-107)
[2021-02-20 08:00] VITALS: BP 109/72
[2021-02-20 08:14] LABS: BASOPHILS % 0.8 % (0.0-2.0); EOSINOPHILS % 0.1 % (0.0-5.0); HEMATOCRIT. 23.4 % (36.0-48.0); HEMOGLOBIN. 8.3 g/dL (12.0-16.0); LYMPHOCYTES % 15.9 % (20.0-50.0); MEAN CORPUSCULAR HEMOGLOBIN 36.5 pg (28.0-32.0); MEAN PLATELET VOLUME 10.1 fl (7.4-10.4); MONOCYTES % 9.2 % (2.0-8.0); PLATELET 67 x1000/uL (130-400); RED BLOOD CELL COUNT 2.27 mill/uL (4.2-5.4); RED CELL DISTRIBUTION WIDTH 23.6 % (11.6-14.6)
[2021-02-20] MEDS: MULTIVITAMINS,THER W-MINERALS TABLET PO SCH (08:27)
[2021-02-20] MEDS: THIAMINE HCL 100MG TABLET PO SCH (08:27)
[2021-02-20] MEDS: PANTOPRAZOLE SODIUM 40 MG/VIAL IV SCH ×2 (08:27→17:05)
[2021-02-20] MEDS: MAGNESIUM OXIDE 400MG TABLET PO SCH (08:27)
[2021-02-20] MEDS: CITALOPRAM HYDROBROMIDE 10MG TABLET PO SCH (08:27)
[2021-02-20] MEDS: FOLIC ACID 1MG TABLET PO SCH (08:27)
[2021-02-20 12:00] VITALS: BP 88/54
[2021-02-20] MEDS ORDERED: MAGNESIUM 2 G PREMIX 50 ML IV NR (15:00)
[2021-02-20 16:00] VITALS: BP 95/64
[2021-02-20 20:00] VITALS: BP_SYST 110; BP_SYST 90; BP_DIAS 57; BP_DIAS 60
[2021-02-20] MEDS: CYANOCOBALAMIN 1000MCG/ML VIAL IM SCH (20:59)
[2021-02-21] VITALS: BP 95/56
[2021-02-21 04:00] VITALS: BP 103/74
[2021-02-21 05:52] LABS: BASOPHILS % 0.6 % (0.0-2.0); EOSINOPHILS % 0.1 % (0.0-5.0); HEMATOCRIT. 22.2 % (36.0-48.0); HEMOGLOBIN. 7.8 g/dL (12.0-16.0); LYMPHOCYTES % 17.3 % (20.0-50.0); MEAN CORPUSCULAR HEMOGLOBIN 36.4 pg (28.0-32.0); MEAN CORPUSCULAR VOLUME 103.2 fL (81.0-99.0); MONOCYTES % 11.8 % (2.0-8.0); NEUTROPHILS % 70.2 % (40.0-76.0); PLATELET 55 x1000/uL (130-400); RED BLOOD CELL COUNT 2.15 mill/uL (4.2-5.4); RED CELL DISTRIBUTION WIDTH 23.4 % (11.6-14.6)
[2021-02-21 06:09] LABS: CHLORIDE 107 mEq/L (98-107)
[2021-02-21] MEDS: GABAPENTIN 300MG CAPSULE PO SCH ×3 (06:18→20:53)
[2021-02-21 08:00] VITALS: BP 92/56
[2021-02-21] MEDS: CITALOPRAM HYDROBROMIDE 10MG TABLET PO SCH (08:47)
[2021-02-21] MEDS: PANTOPRAZOLE SODIUM 40 MG/VIAL IV SCH ×2 (08:47→18:04)
[2021-02-21] MEDS: MAGNESIUM OXIDE 400MG TABLET PO SCH (08:47)
[2021-02-21] MEDS: THIAMINE HCL 100MG TABLET PO SCH (08:47)
[2021-02-21] MEDS: FOLIC ACID 1MG TABLET PO SCH (08:47)
[2021-02-21] MEDS: MULTIVITAMINS,THER W-MINERALS TABLET PO SCH (08:47)
[2021-02-21 12:00] VITALS: BP 104/55
[2021-02-21 16:00] VITALS: BP 96/57
[2021-02-21 20:00] VITALS: BP 108/56
[2021-02-21] MEDS: CYANOCOBALAMIN 1000MCG/ML VIAL IM SCH (20:53)
[2021-02-22] VITALS: BP 105/55
[2021-02-22 04:00] VITALS: BP 113/69
[2021-02-22] MEDS: GABAPENTIN 300MG CAPSULE PO SCH ×3 (05:15→21:51)
[2021-02-22 06:11] LABS: BASOPHILS % 0.9 % (0.0-2.0); EOSINOPHILS % 0.1 % (0.0-5.0); HEMATOCRIT. 23.1 % (36.0-48.0); HEMOGLOBIN. 8.1 g/dL (12.0-16.0); LYMPHOCYTES % 16.6 % (20.0-50.0); MEAN CORPUSCULAR HEMOGLOBIN 36.7 pg (28.0-32.0); MONOCYTES % 10.6 % (2.0-8.0); NEUTROPHILS % 71.8 % (40.0-76.0); RED BLOOD CELL COUNT 2.22 mill/uL (4.2-5.4); RED CELL DISTRIBUTION WIDTH 23.2 % (11.6-14.6)
[2021-02-22 06:29] LABS: CHLORIDE 108 mEq/L (98-107)
[2021-02-22 07:00] LABS: PLATELET 56 x1000/uL (130-400)
[2021-02-22 08:00] VITALS: BP 100/64
[2021-02-22] MEDS: CITALOPRAM HYDROBROMIDE 10MG TABLET PO SCH (09:00)
[2021-02-22] MEDS: PANTOPRAZOLE SODIUM 40 MG/VIAL IV SCH ×2 (10:30→17:56)
[2021-02-22] MEDS: FOLIC ACID 1MG TABLET PO SCH (10:30)
[2021-02-22] MEDS: THIAMINE HCL 100MG TABLET PO SCH (10:31)
[2021-02-22] MEDS: MULTIVITAMINS,THER W-MINERALS TABLET PO SCH (10:31)
[2021-02-22] MEDS: MAGNESIUM OXIDE 400MG TABLET PO SCH (10:31)
[2021-02-22 12:00] VITALS: BP 101/69
[2021-02-22 16:00] VITALS: BP 104/66
[2021-02-22 20:00] VITALS: BP 98/61
[2021-02-22] MEDS: CYANOCOBALAMIN 1000MCG/ML VIAL IM SCH (21:51)
[2021-02-23] VITALS (8 sets, daily range): BP systolic 95–103; BP diastolic 55–71
[2021-02-23] MEDS: GABAPENTIN 300MG CAPSULE PO SCH ×3 (06:18→21:23)
[2021-02-23 08:05] LABS: CHLORIDE 108 mEq/L (98-107)
[2021-02-23 08:06] LABS: INR 2.2; PROTHROMBIN TIME 22.1 sec (9.6-11.0)
[2021-02-23 08:23] LABS: BASOPHILS % 0.4 % (0.0-2.0); EOSINOPHILS % 0.1 % (0.0-5.0); HEMATOCRIT. 22.1 % (36.0-48.0); HEMOGLOBIN. 7.7 g/dL (12.0-16.0); LYMPHOCYTES % 17.5 % (20.0-50.0); MEAN CORPUSCULAR HEMOGLOBIN 36.2 pg (28.0-32.0); MONOCYTES % 9.1 % (2.0-8.0); NEUTROPHILS % 72.9 % (40.0-76.0); RED BLOOD CELL COUNT 2.12 mill/uL (4.2-5.4); RED CELL DISTRIBUTION WIDTH 22.4 % (11.6-14.6)
[2021-02-23] MEDS: MAGNESIUM OXIDE 400MG TABLET PO SCH (09:05)
[2021-02-23] MEDS: THIAMINE HCL 100MG TABLET PO SCH (09:05)
[2021-02-23] MEDS: MULTIVITAMINS,THER W-MINERALS TABLET PO SCH (09:05)
[2021-02-23] MEDS: FOLIC ACID 1MG TABLET PO SCH (09:05)
[2021-02-23] MEDS: CITALOPRAM HYDROBROMIDE 10MG TABLET PO SCH (09:06)
[2021-02-23] MEDS: PANTOPRAZOLE SODIUM 40 MG/VIAL IV SCH ×2 (12:01→16:06)
[2021-02-23 12:34] LABS: MEAN PLATELET VOLUME 10.1 fl (7.4-10.4)
[2021-02-23 12:35] LABS: PLATELET 60 x1000/uL (130-400)
[2021-02-23] MEDS: CYANOCOBALAMIN 1000MCG/ML VIAL IM SCH (21:22)
[2021-02-24] VITALS (18 sets, daily range): BP systolic 92–115; BP diastolic 58–79
[2021-02-24] MEDS: GABAPENTIN 300MG CAPSULE PO SCH ×3 (05:53→21:35)
[2021-02-24 06:31] LABS: INR 1.8; PROTHROMBIN TIME 18.5 sec (9.6-11.0)
[2021-02-24 07:04] LABS: BASOPHILS % 0.6 % (0.0-2.0); EOSINOPHILS % 0.5 % (0.0-5.0); HEMOGLOBIN. 7.3 g/dL (12.0-16.0); LYMPHOCYTES % 19.9 % (20.0-50.0); MEAN CORPUSCULAR HEMOGLOBIN 36.3 pg (28.0-32.0); MEAN CORPUSCULAR VOLUME 103.5 fL (81.0-99.0); MONOCYTES % 9.4 % (2.0-8.0); NEUTROPHILS % 69.6 % (40.0-76.0); RED BLOOD CELL COUNT 2.02 mill/uL (4.2-5.4); RED CELL DISTRIBUTION WIDTH 22.2 % (11.6-14.6)
[2021-02-24 07:24] LABS: CHLORIDE 107 mEq/L (98-107)
[2021-02-24] MEDS: MULTIVITAMINS,THER W-MINERALS TABLET PO SCH (09:22)
[2021-02-24] MEDS: MAGNESIUM OXIDE 400MG TABLET PO SCH (09:22)
[2021-02-24] MEDS: CITALOPRAM HYDROBROMIDE 10MG TABLET PO SCH (09:22)
[2021-02-24] MEDS: THIAMINE HCL 100MG TABLET PO SCH (09:22)
[2021-02-24] MEDS: PANTOPRAZOLE SODIUM 40 MG/VIAL IV SCH ×2 (09:22→16:24)
[2021-02-24] MEDS: FOLIC ACID 1MG TABLET PO SCH (09:22)
[2021-02-24 09:44] LABS: HEMATOCRIT. 20.9 % (36.0-48.0)
[2021-02-24] MEDS ORDERED: LIDOCAINE HCL 1% 10 MG/ML 10ML VIAL ONE (10:01)
[2021-02-24] MEDS ORDERED: SODIUM BICARBONATE 4% (2.4MEQ) 5ML VIAL IV ONE (10:02)
[2021-02-24 11:41] LABS: PLATELET 53 x1000/uL (130-400)
[2021-02-24] MEDS: CYANOCOBALAMIN 1000MCG/ML VIAL IM SCH (21:35)
[2021-02-25 04:00] VITALS: BP 100/59
[2021-02-25] MEDS: GABAPENTIN 300MG CAPSULE PO SCH ×3 (06:26→21:56)
[2021-02-25 07:17] LABS: HEMATOCRIT. 23.4 % (36.0-48.0); HEMOGLOBIN. 8.3 g/dL (12.0-16.0); MEAN CORPUSCULAR VOLUME 101.8 fL (81.0-99.0)
[2021-02-25 07:20] LABS: PROTHROMBIN TIME 20.5 sec (9.6-11.0)
[2021-02-25 07:22] LABS: CHLORIDE 108 mEq/L (98-107)
[2021-02-25 08:00] VITALS: BP 97/55
[2021-02-25] MEDS: THIAMINE HCL 100MG TABLET PO SCH (09:02)
[2021-02-25] MEDS: CITALOPRAM HYDROBROMIDE 10MG TABLET PO SCH (09:02)
[2021-02-25] MEDS: MULTIVITAMINS,THER W-MINERALS TABLET PO SCH (09:02)
[2021-02-25] MEDS: FOLIC ACID 1MG TABLET PO SCH (09:02)
[2021-02-25] MEDS: PANTOPRAZOLE SODIUM 40 MG/VIAL IV SCH ×2 (09:02→17:38)
[2021-02-25] MEDS: MAGNESIUM OXIDE 400MG TABLET PO SCH (09:02)
[2021-02-25 09:51] LABS: PLATELET ESTIMATE MARKEDLY DECREASED
[2021-02-25 09:52] LABS: MEAN PLATELET VOLUME 9.2 fl (7.4-10.4); PLATELET 51 x1000/uL (130-400)
[2021-02-25 12:00] VITALS: BP 99/58
[2021-02-25] MEDS ORDERED: SPIR50TA5 MT (13:40)
[2021-02-25] MEDS ORDERED: OMEP20CA14 MT (13:40)
[2021-02-25] MEDS ORDERED: FURO-151 MT (13:40)
[2021-02-25] MEDS ORDERED: CITA10TA16 PO (13:40)
[2021-02-25] MEDS ORDERED: MAGN200T5 MT (13:40)
[2021-02-25 16:00] VITALS: BP 98/68
[2021-02-25 20:00] VITALS: BP 111/78
[2021-02-25] MEDS ORDERED: ONDANSETRON HCL 4MG/2ML INJ IV PRN (23:00)
[2021-02-26] VITALS: BP 96/60
[2021-02-26 04:00] VITALS: BP 101/67
[2021-02-26 06:12] LABS: BASOPHILS % 0.4 % (0.0-2.0); EOSINOPHILS % 0.1 % (0.0-5.0); HEMATOCRIT. 24.7 % (36.0-48.0); HEMOGLOBIN. 8.7 g/dL (12.0-16.0); LYMPHOCYTES % 16.4 % (20.0-50.0); MEAN CORPUSCULAR HEMOGLOBIN 36.3 pg (28.0-32.0); MEAN CORPUSCULAR VOLUME 102.8 fL (81.0-99.0); MONOCYTES % 8.6 % (2.0-8.0); NEUTROPHILS % 74.5 % (40.0-76.0); RED CELL DISTRIBUTION WIDTH 22.9 % (11.6-14.6)
[2021-02-26 06:19] LABS: CHLORIDE 108 mEq/L (98-107)
[2021-02-26] MEDS: GABAPENTIN 300MG CAPSULE PO SCH (06:52)
[2021-02-26 07:54] VITALS: BP 101/67
[2021-02-26] MEDS: CITALOPRAM HYDROBROMIDE 10MG TABLET PO SCH (08:40)
[2021-02-26] MEDS: PANTOPRAZOLE SODIUM 40 MG/VIAL IV SCH (08:40)
[2021-02-26] MEDS: MAGNESIUM OXIDE 400MG TABLET PO SCH (08:40)
[2021-02-26 09:53] LABS: PLATELET 55 x1000/uL (130-400)
== END 2021-02-26 08:53 | DRG 280 ==
LOC: ER 16:13 → EDSEX 01-28 01:35 → MICUSO 01-28 01:35 → EDBEDREQDT 01-28 01:36 → EDBEDREQTM 01-28 01:36 → EDBEDREQSVC 01-28 01:36 → EDBEDREQ 01-28 01:36 → 7EST 01-28 07:43 → MICUSO 01-28 07:43 → CVICU 01-28 11:38 → 7EST 01-28 11:48 → 7WST 02-15 18:37 → 7EST 02-17 11:45
PROVIDERS: ADMIT Internal Medicine; ATTEND Internal Medicine
PROC: 30233N1 Transfusion of Nonautologous Red Blood Cells into Peripheral Vein, Percutaneous Approach (ICD-10-PCS; 2021-01-28)
PROC: 0W9G3ZZ Drainage of Peritoneal Cavity, Percutaneous Approach (ICD-10-PCS; principal; 2021-01-29)
PROC: 30233K1 Transfusion of Nonautologous Frozen Plasma into Peripheral Vein, Percutaneous Approach (ICD-10-PCS; 2021-01-29)
PROC: 0DJ68ZZ Inspection of Stomach, Via Natural or Artificial Opening Endoscopic (ICD-10-PCS; 2021-02-02)
PROC: 30233R1 Transfusion of Nonautologous Platelets into Peripheral Vein, Percutaneous Approach (ICD-10-PCS; 2021-02-02)
PROC: 0W9G3ZZ Drainage of Peritoneal Cavity, Percutaneous Approach (ICD-10-PCS; 2021-02-10)
PROC: 0W9G3ZZ Drainage of Peritoneal Cavity, Percutaneous Approach (ICD-10-PCS; 2021-02-24)
DX: K70.31 Alcoholic cirrhosis of liver with ascites (principal); D61.818 Other pancytopenia; E43 Unspecified severe protein-calorie malnutrition; D68.9 Coagulation defect, unspecified; J18.9 Pneumonia, unspecified organism; I85.10 Secondary esophageal varices without bleeding; F33.1 Major depressive disorder, recurrent, moderate; K76.6 Portal hypertension; E87.8 Other disorders of electrolyte and fluid balance, not elsewhere classified; F10.10 Alcohol abuse, uncomplicated; J98.11 Atelectasis; K86.1 Other chronic pancreatitis; N39.0 Urinary tract infection, site not specified; K31.9 Disease of stomach and duodenum, unspecified; D75.89 Other specified diseases of blood and blood-forming organs; K44.9 Diaphragmatic hernia without obstruction or gangrene; R16.2 Hepatomegaly with splenomegaly, not elsewhere classified; F41.9 Anxiety disorder, unspecified; Z20.822 Contact with and (suspected) exposure to COVID-19; Z59.00 Homelessness unspecified; Z90.49 Acquired absence of other specified parts of digestive tract; Z79.899 Other long term (current) drug therapy; Z68.23 Body mass index [BMI] 23.0-23.9, adult; Z88.5 Allergy status to narcotic agent; Z88.8 Allergy status to other drugs, medicaments and biological substances; Z71.41 Alcohol abuse counseling and surveillance of alcoholic
CPT/HCPCS: 36415; 49083; 71045; 74176; 76700; 76705; 80048; 80053; 80076; 80305; 81003; 82040; 82140; 82270; 82550; 82607; 82728; 82746; 82962; 83540; 83550; 83605; 83615; 83735; 83880; 84100; 84145; 84484; 85014; 85018; 85025; 85027; 85044; 85049; 85384; 86705; 86709; 86803; 86850; 86900; 86920; 86927; 86945; 87340; 87426; 88108; 88312; 93005; 97161; 97164; 97166; 99291; C1893; C9113; J0456; J0696; J1170; J2250; J2354; J2405; J2704; J3420; J3430; J3475; J3490; J7030; J7040; J7050; J7060; P9016; P9017; P9034; A4315